=== PATIENT | female | born 1985 | race Caucasian/White ===

== ENCOUNTER 2017-04-23 15:16 | Emergency (ER) | payer OTHER ==
--- NOTE | 2017-04-23 15:38 | CPEKG ---
Heart Rate: 77 RR Interval: 779 P-R Interval: 180 QRSD Interval: 104 QT Interval: 400 QTC Interval: 453 P [place]: 71 QRS [place]: 69 T Wave [place]: 54 EKG Severity - NORMAL ECG - EKG Impression: SINUS RHYTHM Electronically Signed By: Jakub Stevens 23-Apr-2017 18:49:14
[2017-04-23] MEDS ORDERED: ASPIRIN 81 MG CHEWABLE TAB PO ONE (15:45)
[2017-04-23 15:51] VITALS: TEMP 97.9
[2017-04-23 15:52] LABS: % IMMATURE GRANULYOCYTES 0.2 % (0.0-1.1); ABSOLUTE IMMATURE GRANULOCYTES 0.02 10^3/uL (0.00-0.10); ADD DIFF? NO; ADD MORPH? NO; ADD SCAN? NO; ATYPICAL LYMPHOCYTE FLAG 50 (0-99); FRAGMENT RBC FLAG 0 (0-99); HEMATOCRIT 40.5 % (38.0-47.0); HEMOGLOBIN 14.4 g/dL (12.6-16.3); LEFT SHIFT FLG 0 (0-99); LIPEMIA HEMOLYSIS FLAG 90 (0-99); MEAN CELL HEMOGLOBIN 31.4 pg (27.9-34.1); MEAN CELL HEMOGLOBIN CONCENTR. 35.6 g/dL (32.4-36.7); MEAN CELL VOLUME 88.2 fL (81.5-99.8); PLATELET CLUMPS FLAG 20 (0-99); PLATELET COUNT 138 10^3/uL (150-400); RED BLOOD CELL COUNT 4.59 10^6/uL (4.18-5.33); RED CELL DISTRIBUTION WIDTH 12.3 % (11.5-15.2)
[2017-04-23] MEDS ORDERED: KETOROLAC 15 MG/1 ML SDV IVP ONE (15:59)
[2017-04-23] MEDS ORDERED: KETOROLAC 15 MG/1 ML SDV ONE (15:59)
[2017-04-23] MEDS ORDERED: NS 1,000 ML IV ONE (16:00)
[2017-04-23 16:02] LABS: APTT 28.8 SEC (23.0-38.0); INR 1.06 (0.83-1.16); PROTIME(PATIENT) 13.5 SEC (12.0-15.0)
[2017-04-23 16:12] LABS: ALANINE AMINOTRANSFERASE 43 IU/L (9-52); ALBUMIN 4.3 g/dL (3.5-5.0); ALKALINE PHOSPHATASE 65 IU/L (38-126); ANION GAP 13 mEq/L (8-16); ASPARTATE AMINOTRANSFERASE 29 IU/L (14-46); BILIRUBIN,TOTAL 1.3 mg/dL (0.1-1.4); BILIRUBIN-CONJUGATED 0.3 mg/dL (0.0-0.5); CARBON DIOXIDE 20 mEq/l (22-31); CHLORIDE 106 mEq/L (97-110); CREATININE 0.9 mg/dL (0.6-1.0); GLOMERULAR FILTRATION RATE > 60; GLUCOSE 99 mg/dL (70-100); POTASSIUM 3.7 mEq/L (3.5-5.2); SODIUM 139 mEq/L (134-144); TOTAL PROTEIN 7.3 g/dL (6.3-8.2)
[2017-04-23 16:15] LABS: TROPONIN I < 0.012 ng/mL (0.000-0.034)
[2017-04-23] MEDS ORDERED: IOPAMIDOL (ISOVUE 370) 100 ML BTL IV ONE (16:31)
[2017-04-23] MEDS ORDERED: HYOSCYAMINE SULFATE 0.125 MG TAB PO ONE (16:58)
--- NOTE | 2017-04-23 17:09 | EDPHY ---
H & P Stated Complaint: R SIDED CP Time Seen by Provider: 04/23/17 15:45 HPI/ROS: This patient complains of chest pain and right lower or chest that feels like pressure to her onset at noon approximately 90 minutes after eating bolognaise at home. She reports that the intensity quickly increased from mild pain to 6/ 10 at baseline up to 8/10 with deep breaths. She notes no change with movement and no other exacerbating factors. She has occasionally had issues with GERD but has had no significant GERD symptoms today. She did try Tums-4 prior to arrival and Zantac without improvement. She has driven here by her by private vehicle for further evaluation of her symptoms. ROS: No fevers or chills. No other constitutional symptoms. HEENT: No recent URI symptoms or other complaints. Neuro: No complaints Pulmonary: No shortness of breath. No cough. Cardiovascular: No heart palpitations. No lightheadedness. No leg swelling or calf pain. GI: No belching. No nausea. She reports that the pain feels like it may also be in her right upper belly but feels more prominent in her right lower chest. Musculoskeletal: No back pain or flank pain. Integumentary: No rash or other skin complaints : She reports spotting over the past 2 days and has an IUD. No urinary symptoms. Psychiatric: No complaints Complete review of symptoms is otherwise negative Source: Patient Exam Limitations: No limitations - Personal History LMP (Females 10-55): 1-7 Days Ago Current Tetanus Diphtheria and Acellular Pertussis (TDAP): Yes Tetanus Vaccine Date: LESS THAN 10 YEARS - Medical/Surgical History PMH: Occasional GERD. Otherwise healthy with a 3-1/2-year-old boy Hx Asthma: No Hx Chronic Respiratory Disease: No Hx Diabetes: No Hx Cardiac Disease: No Hx Renal Disease: No Hx Cirrhosis: No Hx Alcoholism: No Hx HIV/AIDS: No Hx Splenectomy or Spleen Trauma: No Other PMH: NONE - Family History Significant Family History: No pertinent family hx - Social History Smoking Status: Never smoked Alcohol Use: Occasionally Drug Use: None Additional Social History: No recent prolonged immobilization or travel. - Physical Exam Exam: Vital signs are normal General Appearance: Patient is initially tearful due to pain. Alert, no distress. Eyes: Pupils equal and round no pallor or injection. ENT, Mouth: Mucous membranes moist. Respiratory: There are no retractions, lungs are clear to auscultation. She does have mild right lower chest wall tenderness but feels like most of the pain is Cardiovascular: Regular rate and rhythm. No murmur gallop rub. No lower extremity edema no calf tenderness Gastrointestinal: Hyperactive bowel sounds with mild right upper quadrant tenderness. No guarding or rebound. No organomegaly. Neurological: GCS 15. Skin: Warm and dry, no rashes. Musculoskeletal: Neck is supple nontender. Extremities are symmetrical, full range of motion. Psychiatric: Mildly anxious. Otherwise normal mood and affect. DIFFERENTIAL DIAGNOSIS: After history and physical exam differential diagnosis was considered for PE, pleurisy, pneumonia, pericarditis, biliary disease, musculoskeletal pain, severe gas cramps Constitutional: Initial Vital Signs Temperature (C) 36.6 C 04/23/17 15:48 Heart Rate 76 04/23/17 15:48 Respiratory Rate 17 04/23/17 15:48 Blood Pressure 146/93 H 04/23/17 15:48 O2 Sat (%) 97 04/23/17 15:48 O2 Delivery Mode Room Air Allergies/Adverse Reactions: No Known Allergies Allergy (Verified 05/07/13 12:11) Home Medications: Medication Instructions Recorded 1 tab PO DAILY 05/07/13 Tums 2 tab PO DAILY 05/07/13 HYOSCYAMINE SULFATE [LEVSIN-SL] 0.125 - 0.25 mg SL Q6 PRN #20 04/23/17 tab.subl Pantoprazole Sodium [Protonix 40mg 40 mg PO DAILY #30 tab 04/23/17 (RX)] Medical Decision Making - Diagnostics EKG Interpretation: 12 lead EKG performed shortly after arrival at 3:37 p.m. indication chest pain rule out right heart strain or other Sinus rhythm on this EKG rate of 77 Intervals: Normal throughout [place]: Normal throughout ST segments: Normal throughout Overall assessment: Normal EKG. For complete read please refer to trace master. Imaging Results: Imaging Impressions Chest/Thorax CTA 04/23/17 16:19 Impression: 1. No pulmonary embolism. 2. Clear lungs. Findings and recommendations discussed with ANJMA MA at 1658 hour, . Final report concurs with initial preliminary interpretation. Imaging: Discussed imaging studies w/ magician/illusionist Radiologist ED Course/Re-evaluation: Aspirin, IV, monitor Patient remained stable on the monitor. IV Toradol and normal saline bolus with relief of pain down to mild intensity. Patient sent for CT angio chest given elevated D-dimer. This is read as normal by radiologist Nnamdi Espinoza with whom I discussed the study. Patient has minimal discomfort on repeat exam more prominent hyperactive bowel sounds. She is then treated with Levsin 0.125 sublingual with further reduction in her symptoms to near complete resolution. Discussion: Review of labs reveals mild elevation of her D-dimer. Patient's other labs including CBC, metabolic panel and, troponin, test (neg) and LFTs are normal. Given these findings, doubt biliary disease. We ruled out hepatitis. Given apparent pleuritic nature of the pain along with elevated D-dimer will proceed with CT angio to evaluate for potential PE. I counseled patient regarding her CT angio chest which is normal without evidence of PE. We have ruled out pulmonic process is of any significance with workup today. Similarly, no evidence of primary cardiac problem. Given patient's marked improvement with treatment hyperactive bowel sounds she may have had cramping primarily at the hepatic flexure this causing some discomfort in the right low chest in addition. No evidence after workup of significant acute pulmonary or cardiac pathology. The time of discharge the patient is comfortable with normal vital signs ambulating without difficulty. Plan on treating her with Levsin for any recurrent symptoms, bland diet. Patient also requested an antacid. Prescribed Protonix encouraged her to use Maalox in addition should she develop any significant GERD symptoms. She will follow up with primary care physician for any ongoing symptoms understands the need to return emergency department for any significant recurrence of symptoms despite the plan - Data Points Laboratory Results: Laboratory Results 04/23/17 15:45 04/23/17 15:45 04/23/17 04/23/17 04/23/17 15:45 15:45 15:45 WBC RBC Hgb Hct MCV MCH MCHC RDW Plt Count MPV Neut % (Auto) Lymph % (Auto) [place] % (Auto) Eos % (Auto) Baso % (Auto) Nucleat RBC Rel Count Absolute Neuts (auto) Absolute Lymphs (auto) Absolute Monos (auto) Absolute Eos (auto) Absolute Basos (auto) Absolute Nucleated RBC Immature Gran % Immature Gran # PT 13.5 SEC SEC (12.0-15.0) INR 1.06 (0.83-1.16) APTT 28.8 SEC SEC (23.0-38.0) D-Dimer 0.69 ug/mLFEU H ug/mLFEU (0.00-0.50) Sodium 139 mEq/L mEq/L (134-144) Potassium 3.7 mEq/L mEq/L (3.5-5.2) Chloride 106 mEq/L mEq/L (97-110) Carbon Dioxide 20 mEq/l L mEq/l (22-31) Anion Gap 13 mEq/L mEq/L (8-16) BUN 20 mg/dL mg/dL (7-23) Creatinine 0.9 mg/dL mg/dL (0.6-1.0) Estimated GFR > 60 Glucose 99 mg/dL mg/dL (70-100) Calcium 10.0 mg/dL mg/dL (8.5-10.4) Total Bilirubin 1.3 mg/dL mg/dL (0.1-1.4) Conjugated Bilirubin 0.3 mg/dL mg/dL (0.0-0.5) Unconjugated Bilirubin 1.0 mg/dL mg/dL (0.0-1.1) AST 29 IU/L IU/L (14-46) ALT 43 IU/L IU/L (9-52) Alkaline Phosphatase 65 IU/L IU/L (38-126) Troponin I < 0.012 ng/mL ng/mL (0.000-0.034) Total Protein 7.3 g/dL g/dL (6.3-8.2) Albumin 4.3 g/dL g/dL (3.5-5.0) Lipase 94 IU/L IU/L (23-300) Beta HCG, Qual NEGATIVE 04/23/17 15:45 WBC 9.09 10^3/uL 10^3/uL (3.80-9.50) RBC 4.59 10^6/uL 10^6/uL (4.18-5.33) Hgb 14.4 g/dL g/dL (12.6-16.3) Hct 40.5 % % (38.0-47.0) MCV 88.2 fL fL (81.5-99.8) MCH 31.4 pg pg (27.9-34.1) MCHC 35.6 g/dL g/dL (32.4-36.7) RDW 12.3 % % (11.5-15.2) Plt Count 138 10^3/uL L 10^3/uL (150-400) MPV 12.0 fL H fL (8.7-11.7) Neut % (Auto) 63.7 % % (39.3-74.2) Lymph % (Auto) 27.4 % % (15.0-45.0) [place] % (Auto) 7.4 % % (4.5-13.0) Eos % (Auto) 0.7 % % (0.6-7.6) Baso % (Auto) 0.6 % % (0.3-1.7) Nucleat RBC Rel Count 0.0 % % (0.0-0.2) Absolute Neuts (auto) 5.80 10^3/uL 10^3/uL (1.70-6.50) Absolute Lymphs (auto) 2.49 10^3/uL 10^3/uL (1.00-3.00) Absolute Monos (auto) 0.67 10^3/uL 10^3/uL (0.30-0.80) Absolute Eos (auto) 0.06 10^3/uL 10^3/uL (0.03-0.40) Absolute Basos (auto) 0.05 10^3/uL 10^3/uL (0.02-0.10) Absolute Nucleated RBC 0.00 10^3/uL 10^3/uL (0-0.01) Immature Gran % 0.2 % % (0.0-1.1) Immature Gran # 0.02 10^3/uL 10^3/uL (0.00-0.10) PT INR APTT D-Dimer Sodium Potassium Chloride Carbon Dioxide Anion Gap BUN Creatinine Estimated GFR Glucose Calcium Total Bilirubin Conjugated Bilirubin Unconjugated Bilirubin AST ALT Alkaline Phosphatase Troponin I Total Protein Albumin Lipase Beta HCG, Qual Medications Given: Discontinued Medications Aspirin (Aspirin) 324 mg PO EDNOW ONE Stop: 04/23/17 15:46 Last Admin: 04/23/17 15:53 Dose: 324 mg Hyoscyamine Sulfate (Levsin, Hyomax-Sl) 0.125 mg PO EDNOW ONE Stop: 04/23/17 16:59 Last Admin: 04/23/17 17:03 Dose: 0.125 mg Sodium Chloride (Ns) 1,000 mls @ 0 mls/hr IV EDNOW ONE; Wide Open PRN Reason: Protocol Stop: 04/23/17 16:01 Last Admin: 04/23/17 16:07 Dose: 1,000 mls Ketorolac Tromethamine (Toradol) 15 mg IVP EDNOW ONE Stop: 04/23/17 16:00 Last Admin: 04/23/17 16:07 Dose: 15 mg Departure - Departure Disposition: Home, Routine, Self-Care Clinical Impression: Chest pain in adult, RUQ abdominal pain Condition: Fair Instructions: Pantoprazole (By mouth), Chest Pain (ED), Acute Abdominal Pain ( ED) Additional Instructions: Diagnoses: 1. Right upper quadrant abdominal pain 2. Chest pain Plan: [place] diet to feel improved Consider a probiotic or yogurt Levsin if needed for acute cramping Maalox for acid reflux symptoms and Protonix. Follow up primary care physician for any ongoing symptoms. Return for any significant worsening despite the treatment plan Referrals: NONE *PRIMARY CARE P,. [Primary Care Provider] - As per Instructions Prescriptions: HYOSCYAMINE SULFATE [LEVSIN-SL] 0.125 - 0.25 mg SL Q6 PRN #20 tab.subl PRN Reason: abdominal cramping Pantoprazole Sodium [Protonix 40mg (RX)] 40 mg PO DAILY #30 tab
[2017-04-23 17:10] VITALS: BP 131/83; PULSE 80; RESP 20; O2SAT 99
== END 2017-04-23 17:17 | disposition home or self-care (01) ==
LOC: CED 15:16
DX: R07.89 Other chest pain (principal); R10.11 Right upper quadrant pain; E86.9 Volume depletion, unspecified
CPT/HCPCS: 71275-PO; 80048-PO; 80076-PO; 83690-PO; 84484-PO; 84703-PO; 85025-PO; 85378-PO; 85610-PO; 85730-PO; 96374; J1885; Q9967

== ENCOUNTER 2017-04-23 22:12 | Observation (INO) | payer OTHER ==
[2017-04-23] MEDS ORDERED: KETOROLAC 30 MG/1 ML SDV IVP ONE (22:22)
[2017-04-23] MEDS ORDERED: METOCLOPRAMIDE 10 MG/2 ML VIAL IVP ONE (22:22)
[2017-04-23] MEDS ORDERED: NS 1,000 ML IV ONE (22:22)
--- NOTE | 2017-04-23 22:34 | EDPHY ---
H & P Stated Complaint: RUQ pain 8/10 radiating to back with vomiting x 10 since d/c' ed at 1709. Source: Patient Exam Limitations: No limitations - Personal History LMP (Females 10-55): IUD In Place Current Tetanus Diphtheria and Acellular Pertussis (TDAP): Yes Tetanus Vaccine Date: LESS THAN 10 YEARS - Medical/Surgical History Hx Asthma: No Hx Chronic Respiratory Disease: No Hx Diabetes: No Hx Cardiac Disease: No Hx Renal Disease: No Hx Cirrhosis: No Hx Alcoholism: No Hx HIV/AIDS: No Hx Splenectomy or Spleen Trauma: No Other PMH: NONE - Family History Significant Family History: No pertinent family hx - Social History Smoking Status: Never smoked Alcohol Use: Occasionally Drug Use: None Time Seen by Provider: 04/23/17 22:16 HPI/ROS: This patient was here earlier in the shift in discharged at around 5:00 p.m. with resolution of right upper quadrant and right low chest pain. She had normal labs (CBC, comp metabolic panel, lipase, serum test negative) with the exception of a slightly elevated D-dimer and CT angio chest rule out PE. She received 15 mg dose of Toradol and 0.125 mg dose of Levsin with relief of her symptoms. Her initial symptoms did come on 90 minutes after eating food. She went home and felt well and did not heed instructions for a bland diet, having a burrito since she felt well, and 30 minutes later had development of severe right upper quadrant pain described as pressure and colicky in nature 8/10 intensity-worse than her initial pain earlier in the day. This time the pain radiates to her back. Patient also reports multiple episodes of vomiting and ongoing nausea currently The patient is brought in by her mother by private vehicle for further evaluation of her symptoms. ROS: No fevers or chills. No other constitutional symptoms HEENT: No URI complaints Pulmonary: No complaints Cardiovascular: No lightheadedness or heart palpitations. Currently no chest pain. GI: As per HPI. She did notice any hematemesis and actually did notice the color of her emesis because she has the lights off in the bathroom. : Spotting for 3 days with history of IUD Endocrine: No complaints Integumentary: No complaints 10 point ROS is otherwise negative. (Jakub Stevens) - Medical/Surgical History PMH: with 3-1/2-year-old boy Otherwise healthy No abdominal surgeries (Jakub Stevens) - Social History Additional Social History: Patient's mother is an RN who works at [employer] (Jakub Stevens) - Physical Exam Exam: General Appearance: Patient has some distress due to pain crying on arrival and class being her right upper quadrant Eyes: Pupils equal and round no pallor or injection. ENT, Mouth: Mucous membranes moist. Respiratory: There are no retractions, lungs are clear to auscultation. Cardiovascular: Regular rate and rhythm. No murmur gallop or rub Gastrointestinal: Normoactive to slightly hypoactive bowel sounds with exquisite right upper quadrant tenderness. No guarding or rebound Neurological: GCS 15 Skin: Warm and dry, no rashes. Musculoskeletal: Neck is supple nontender. Extremities are symmetrical, full range of motion. Psychiatric: Patient is anxious due to pain. A otherwise normal mood and affect DIFFERENTIAL DIAGNOSIS: After history and physical exam differential diagnosis was considered for biliary colic, early gallstone pancreatitis, GERD with esophageal spasm, (Jakub Stevens) Constitutional: Initial Vital Signs Temperature (C) 36.3 C 04/23/17 22:24 Heart Rate 58 L 04/23/17 22:24 Respiratory Rate 14 04/23/17 22:24 Blood Pressure 127/93 H 04/23/17 22:24 O2 Sat (%) 100 04/23/17 22:24 O2 Delivery Mode Room Air Allergies/Adverse Reactions: No Known Allergies Allergy (Verified 04/23/17 22:22) Home Medications: Medication Instructions Recorded Tums 2 tab PO DAILY 05/07/13 HYOSCYAMINE SULFATE [LEVSIN-SL] 0.125 - 0.25 mg SL Q6 PRN #20 04/23/17 tab.subl Pantoprazole Sodium [Protonix 40mg 40 mg PO DAILY #30 tab 04/23/17 (RX)] Medical Decision Making ED Course/Re-evaluation: IV normal saline bolus Toradol 15 mg IV Reglan 10 mg, Benadryl 25 mg IV Patient fell dysphoric in the bed hyperkinetic after the Reglan treated with Ativan 1 mg IV with relief. Discussion: Given onset of recurrence shortly after eating a burrito with significant increase in severity of symptoms and new onset of vomiting as well, symptomatic gallstone is high the differential diagnosis. For this reason, called in the technical marketing engineer for gallbladder ultrasound. Earlier labs ruled out hepatitis. Will repeat her LFTs and lipase as well as CBC to look for any interval change. at 11:[address] Blackwood, [facility] emergency physician is here and I signed the patient out to him for any further treatment, with gallbladder ultrasound pending. We did a bedside sign out. He will finalize treatment and disposition. (Jakub Stevens) 2300: Patient signed over to me at 11:00 p.m. shift change. Plan is for gallbladder ultrasound as it may be possible that she has biliary colic versus contacted stone versus cholecystitis. I did go and evaluate the patient. Her pain is located in the right upper quadrant. It is reproducible on exam. At this time she is comfortable after Toradol, Reglan, Benadryl, IV fluids, 1 of Ativan. I did review her previous ER charts as well as this chart. Additionally reviewed her labs from earlier and labs from current ER visit. Plan will be to follow-up ultrasound that appropriate disposition. 1250am: Patient is back from ultrasound she is resting comfortably. No vomiting. She has been sleeping at times. I did reexamine her abdomen is soft nontender. She has not feeling any pain at this time. She states that she is comfortable. I have updated her on her blood work. Her ultrasound results are pending at this time. 1255AM: Patient's ultrasound called to me by Dr. Espinoza. This is a gallbladder stone stuck in the gallbladder neck. There is pericholecystic fluid. There is hyperemia of the gallbladder wall this consistent with acute cholecystitis with an obstructing gallbladder stone. Additionally she has a nodule in her liver. It is in the left lobe of her liver measures 4 x 2.5 x 1.5. This will need further characterization with most likely an MRI. I will update her and her mom at bedside. 1256: Additionally I will consult general surgery. Last meal 6:00 p.m. katerin chen. 0109AM: This patient has decided to go to [facility] emergency room. She will go by private vehicle at her own request. Her mom is a nurse. We will leave her IV in. She is current receiving Invanz. I did speak with Dr. Pham he would like to evaluate the patient in the emergency room at [facility]. He specifically requested 20 mg of Bentyl. Have the patient lying on her right side. (Swapnil Blackwood) - Data Points Laboratory Results: Laboratory Results 04/23/17 22:30 04/23/17 22:30 04/24/17 04/23/17 04/23/17 00:33 22:30 22:30 WBC 12.06 10^3/uL H 10^3/uL (3.80-9.50) RBC 4.57 10^6/uL 10^6/uL (4.18-5.33) Hgb 14.5 g/dL g/dL (12.6-16.3) Hct 40.3 % % (38.0-47.0) MCV 88.2 fL fL (81.5-99.8) MCH 31.7 pg pg (27.9-34.1) MCHC 36.0 g/dL g/dL (32.4-36.7) RDW 12.3 % % (11.5-15.2) Plt Count 142 10^3/uL L 10^3/uL (150-400) MPV 12.7 fL H fL (8.7-11.7) Neut % (Auto) 78.4 % H % (39.3-74.2) Lymph % (Auto) 14.8 % L % (15.0-45.0) [place] % (Auto) 6.2 % % (4.5-13.0) Eos % (Auto) 0.2 % L % (0.6-7.6) Baso % (Auto) 0.2 % L % (0.3-1.7) Nucleat RBC Rel Count 0.0 % % (0.0-0.2) Absolute Neuts (auto) 9.44 10^3/uL H 10^3/uL (1.70-6.50) Absolute Lymphs (auto) 1.79 10^3/uL 10^3/uL (1.00-3.00) Absolute Monos (auto) 0.75 10^3/uL 10^3/uL (0.30-0.80) Absolute Eos (auto) 0.03 10^3/uL 10^3/uL (0.03-0.40) Absolute Basos (auto) 0.02 10^3/uL 10^3/uL (0.02-0.10) Absolute Nucleated RBC 0.00 10^3/uL 10^3/uL (0-0.01) Immature Gran % 0.2 % % (0.0-1.1) Immature Gran # 0.03 10^3/uL 10^3/uL (0.00-0.10) Sodium 139 mEq/L mEq/L (134-144) Potassium 3.9 mEq/L mEq/L (3.5-5.2) Chloride 95 mEq/L L D mEq/L (97-110) Carbon Dioxide 19 mEq/l L mEq/l (22-31) Anion Gap 25 mEq/L H mEq/L (8-16) BUN 17 mg/dL mg/dL (7-23) Creatinine 0.8 mg/dL mg/dL (0.6-1.0) Estimated GFR > 60 Glucose 105 mg/dL H mg/dL (70-100) Calcium 9.6 mg/dL mg/dL (8.5-10.4) Total Bilirubin 1.5 mg/dL H mg/dL (0.1-1.4) AST 29 IU/L IU/L (14-46) ALT 45 IU/L IU/L (9-52) Alkaline Phosphatase 73 IU/L IU/L (38-126) Total Protein 7.0 g/dL g/dL (6.3-8.2) Albumin 4.2 g/dL g/dL (3.5-5.0) Lipase 92 IU/L IU/L (23-300) Urine Color YELLOW Urine Appearance CLEAR Urine pH 6.0 (5.0-7.5) Ur Specific [place] 1.015 (1.002-1.030) Urine Protein NEGATIVE (NEGATIVE) Urine Ketones 2+ H (NEGATIVE) Urine Blood 2+ H (NEGATIVE) Urine Nitrate NEGATIVE (NEGATIVE) Urine Bilirubin NEGATIVE (NEGATIVE) Urine Urobilinogen 0.2 EU EU (0.2-1.0) Ur Leukocyte Esterase NEGATIVE (NEGATIVE) Urine RBC 0-1 /hpf /hpf (0-3) Urine WBC NONE SEEN /hpf /hpf (0-3) Ur Epithelial Cells NONE SEEN /lpf /lpf (NONE-1+) Urine Mucus 2+ /lpf H /lpf (NONE-1+) Urine Glucose NEGATIVE (NEGATIVE) Medications Given: Discontinued Medications Diphenhydramine HCl (Benadryl Injection) 25 mg IVP EDNOW ONE Stop: 04/23/17 22:25 Last Admin: 04/23/17 22:42 Dose: 25 mg Hydromorphone HCl (Dilaudid) 0.5 mg IVP EDNOW ONE Stop: 04/23/17 22:40 Last Admin: 04/24/17 00:36 Dose: Not Given Sodium Chloride (Ns) 1,000 mls @ 0 mls/hr IV EDNOW ONE; Wide Open PRN Reason: Protocol Stop: 04/23/17 22:23 Last Admin: 04/23/17 22:35 Dose: 1,000 mls Sodium Chloride (Ns) 1,000 mls @ 0 mls/hr IV EDNOW ONE; Wide Open PRN Reason: Protocol Stop: 04/24/17 00:40 Last Admin: 04/24/17 00:42 Dose: 1,000 mls Ketorolac Tromethamine (Toradol) 15 mg IVP EDNOW ONE Stop: 04/23/17 22:23 Last Admin: 04/23/17 22:37 Dose: 15 mg Lorazepam (Ativan Injection) 1 mg IVP EDNOW ONE Stop: 04/23/17 22:49 Last Admin: 04/23/17 22:52 Dose: 1 mg Metoclopramide HCl (Reglan Injection) 10 mg IVP EDNOW ONE Stop: 04/23/17 22:23 Last Admin: 04/23/17 22:42 Dose: 10 mg Departure - Departure Disposition: [facility] ER Clinical Impression: Acute cholecystitis, Gallstones Condition: Fair Instructions: Cholecystitis (ED), Biliary Colic (ED), Gallstones (ED), Acute Nausea and Vomiting (ED) Additional Instructions: 1.Go directly to [facility] emergency room. 2. Do not eat or drink anything. 3. They will be expecting you. 4. Dr. Pham is been consult for your care in the emergency room. Referrals: Yasir Santiago MD [Primary Care Provider] - As per Instructions
[2017-04-23 22:37] LABS: % IMMATURE GRANULYOCYTES 0.2 % (0.0-1.1); ABSOLUTE IMMATURE GRANULOCYTES 0.03 10^3/uL (0.00-0.10); ADD DIFF? NO; ADD MORPH? NO; ADD SCAN? NO; ATYPICAL LYMPHOCYTE FLAG 40 (0-99); FRAGMENT RBC FLAG 0 (0-99); HEMATOCRIT 40.3 % (38.0-47.0); HEMOGLOBIN 14.5 g/dL (12.6-16.3); LEFT SHIFT FLG 0 (0-99); LIPEMIA HEMOLYSIS FLAG 90 (0-99); MEAN CELL HEMOGLOBIN 31.7 pg (27.9-34.1); MEAN CELL VOLUME 88.2 fL (81.5-99.8); MEAN PLATELET VOLUME 12.7 fL (8.7-11.7); PLATELET CLUMPS FLAG 0 (0-99); PLATELET COUNT 142 10^3/uL (150-400); RED BLOOD CELL COUNT 4.57 10^6/uL (4.18-5.33); RED CELL DISTRIBUTION WIDTH 12.3 % (11.5-15.2)
[2017-04-23] MEDS ORDERED: HYDROmorphONE/DILAUDID 1 MG/ML INJ IVP ONE (22:39)
[2017-04-23] MEDS ORDERED: LORazepam 2 MG/ML INJ IVP ONE (22:48)
[2017-04-23] MEDS ORDERED: LORazepam 2 MG/ML INJ ONE (22:49)
[2017-04-23 22:53] LABS: ALANINE AMINOTRANSFERASE 45 IU/L (9-52); ALBUMIN 4.2 g/dL (3.5-5.0); ALKALINE PHOSPHATASE 73 IU/L (38-126); ANION GAP 25 mEq/L (8-16); ASPARTATE AMINOTRANSFERASE 29 IU/L (14-46); BILIRUBIN,TOTAL 1.5 mg/dL (0.1-1.4); CALCIUM 9.6 mg/dL (8.5-10.4); CARBON DIOXIDE 19 mEq/l (22-31); CHLORIDE 95 mEq/L (97-110); CREATININE 0.8 mg/dL (0.6-1.0); GLOMERULAR FILTRATION RATE > 60; GLUCOSE 105 mg/dL (70-100); POTASSIUM 3.9 mEq/L (3.5-5.2); SODIUM 139 mEq/L (134-144)
[2017-04-24 00:39] LABS: COLOR YELLOW; LEUKOCYTE ESTERASE,URINE NEGATIVE (NEGATIVE); NITRITE,URINE NEGATIVE (NEGATIVE)
[2017-04-24] MEDS ORDERED: NS 1,000 ML IV ONE (00:39)
[2017-04-24] MEDS ORDERED: ERTAPENEM 1 GM in NS 100 ML IV ONE (00:55)
[2017-04-24 00:59] LABS: MUCUS 2+ /lpf (NONE-1+); RBC,URINE 0-1 /hpf (0-3); WBC,URINE NONE SEEN /hpf (0-3)
[2017-04-24] MEDS ORDERED: NS 100 ML BAG (MINI-BAG) IV ONE (00:59)
[2017-04-24] MEDS ORDERED: DICYCLOMINE 10 MG CAP PO ONE (01:11)
[2017-04-24] MEDS ORDERED: ONDANSETRON 4 MG/2 ML VIAL IVP PRN (04:06)
[2017-04-24] MEDS ORDERED: HYDROmorphone HCL/NS/PF 0.4 MG/2 ML SYR IVP PRN (04:06)
[2017-04-24] MEDS ORDERED: NS 1,000 ML IV SCH (04:15)
--- NOTE | 2017-04-24 04:59 | GHP ---
[f rep st] PREOP HISTORY AND PHYSICAL DATE OF ADMISSION: 04/24/2017 ADMITTING DIAGNOSIS: Acute/chronic cholecystitis with cholelithiasis. HISTORY: The patient is a 32-year-old female who has had a lifelong problem of intermittent abdominal pain occurring on approximately a monthly basis. Today, she had a complaint of pressure in her chest. Initially, right upper quadrant, then across the belly and right chest. She went to [facility]. Workup for a pulmonary embolism was negative. She was sent home with a prescription for Levsin SL 0.125-0.25 mg sublingual q.6, Protonix 40 mg daily and Tums. She has not filled those prescriptions. She did go home and had a burrito. One-half hour later she had a recrudescence of her pain. She went back to [facility]. At this point, acute cholecystitis was diagnosed. She had a positive Riley sign as well as a stone impacted in the neck of her gallbladder. She became more comfortable with pain medications, but still had a positive Riley sign and was transferred to [facility] for treatment. SOCIAL HISTORY: She does not smoke. She has 1-2 drinks a month. ALLERGIES: She has no known drug allergies. MEDICATIONS: She does not take any medications. PAST HISTORY: She has had vaginal x1 and wisdom tooth extraction. There is no history of rheumatic fever, tuberculosis, hepatitis, or transfusions. REVIEW OF SYSTEMS: She had high blood pressure with oral contraceptives. She currently has an IUD in. She denies the possibility of . A test is pending. She wears lenses for visual correction. During her last week of her , she was found to have intrahepatic cholestasis of . On today's examination, she was told she had a cyst in her liver. She does have stress incontinence. There are no limits on her activities. No history of steroid use. She works as a debt recovery officer. Her child weighs 33 pounds. PHYSICAL EXAMINATION: GENERAL: She is polite, awake and communicative. She is not in acute distress at this time. HEENT: Her skull is normocephalic and atraumatic. Cranial nerves appear to be intact. NECK: Unremarkable. There is no thyroid enlargement or carotid bruits. BACK: Unremarkable. LUNGS: Clear to auscultation. CARDIAC: Exam shows S1, S2 to be normal with normal split of S2 without murmurs, rubs, or gallops. ABDOMEN: Hypoactive but normal- sounding bowel sounds. She is nontender, except in the right upper quadrant where she has a positive Riley sign. There is no cervical, supraclavicular, axillary or inguinal lymphadenopathy. Her white count is 12.6, hematocrit 40, platelet count 142. Total bilirubin is 1.5. Her AST is 29, her ALT is 45, her alk phos is 73. Her lipase was 92. IMPRESSION: Patient with lifelong abdominal complaints consistent with a chronic cholecystitis with acute exacerbation and known cholelithiasis by ultrasound. She is more comfortable now. She will be placed on the urgent OR schedule for today. In the meantime, she has received Invanz 1 g. She has been treated with Bentyl. She will be given Tylenol, Toradol and Dilaudid for pain control in the interim. Hydration will be continued. /[id number]/MODL MTDD
[2017-04-24 05:01] LABS: BILIRUBIN,TOTAL 1.3 mg/dL (0.1-1.4); BILIRUBIN-CONJUGATED 0.4 mg/dL (0.0-0.5); BILIRUBIN-UNCONJUGATED 0.9 mg/dL (0.0-1.1)
[2017-04-24] MEDS: KETOROLAC 30 MG/1 ML SDV IVP SCH ×4 (05:06→23:13)
[2017-04-24] MEDS: ACETAMINOPHEN 500 MG TAB PO SCH ×3 (05:30→23:14)
[2017-04-24] MEDS ORDERED: IOPAMIDOL (ISOVUE-M 200) 20 ML VIAL ONE (07:23)
[2017-04-24] MEDS ORDERED: BUPIVACAINE 0.25% 30 ML SDV ONE (07:23)
[2017-04-24] MEDS ORDERED: MIDAZOLAM 2 MG/2 ML VIAL ONE ×2 (08:00→08:38)
[2017-04-24] MEDS ORDERED: SCOPOLAMINE HYDROBROMIDE 1 MG/3 DAYS PATCH TD ONE (08:00)
--- NOTE | 2017-04-24 08:05 | PDHPUP ---
History & Physical Update H&P update statement: This history and physical update is based on an assessment of the patient which was completed after admission or registration (within 24 hours), but prior to the surgery/procedure. H&P update: H&P reviewed & patient examined, no change in patient's condition since H&P completed
[2017-04-24] MEDS ORDERED: PROPOFOL/EMULSION 500 MG/50 ML BOTTLE IV ONE (08:12)
[2017-04-24] MEDS ORDERED: fentaNYL 100 MCG/2 ML INJ ONE (08:12)
[2017-04-24] MEDS ORDERED: SUGAMMADEX SODIUM 200 MG/2 ML VIAL IVP ONE (08:33)
[2017-04-24] MEDS ORDERED: LIDOCAINE 2% 5 ML SDV ONE (08:33)
[2017-04-24] MEDS ORDERED: ROCURONIUM 50 MG/5 ML VIAL ONE (08:33)
[2017-04-24] MEDS ORDERED: KETOROLAC 30 MG/1 ML SDV ONE (08:33)
[2017-04-24] MEDS ORDERED: METOCLOPRAMIDE 10 MG/2 ML VIAL ONE (08:33)
[2017-04-24] MEDS ORDERED: ONDANSETRON 4 MG/2 ML VIAL ONE (08:33)
[2017-04-24] MEDS ORDERED: DEXAMETHASONE 4 MG/ML VIAL ONE (08:33)
[2017-04-24] MEDS ORDERED: RANITIDINE 50 MG/2 ML VIAL ONE (08:33)
--- NOTE | 2017-04-24 08:48 | PDANEPAE ---
ANE Past Medical History - Pulmonary History Hx Oxygen in Use at Home: No Hx Sleep Apnea: No Sleep Apnea Screening Result - Last Documented: Negative - Endocrine History Hx Diabetes: No - Chronic Pain History Chronic Pain: No ANE Review of Systems Review of Systems: ANE Patient History - Allergies Allergies/Adverse Reactions: No Known Allergies Allergy (Verified 04/23/17 22:22) - Home Medications Home Medications: Herbals/Supplements -Info Only 1 ea PO DAILY 04/24/17 [Last Taken Unknown] - NPO status NPO Since - Liquids (Date): 04/23/17 NPO Since - Liquids (Time): 00:00 NPO Since - Solids (Date): 04/23/17 NPO Since - Solids (Time): 00:00 - Smoking Hx Smoking Status: Never smoked - Alcohol Use Alcohol Use: Occasionally ANE Labs/Vital Signs - Labs Result Diagrams: 04/23/17 22:30 04/23/17 22:30 - Vital Signs Blood Pressure: 117/59 Heart Rate: 93 Respiratory Rate: 16 O2 Sat (%): 99 Height: 172.72 cm Weight: 65.771 kg ANE Physical Exam - Airway Neck exam: FROM Mallampati Score: Class 1 Mouth exam: normal dental/mouth exam - Pulmonary Pulmonary: no respiratory distress - Cardiovascular Cardiovascular: regular rate and rhythym, no murmur, rub, or gallop - ASA Status ASA Status: I, E ANE Anesthesia Plan Anesthesia Plan: general endotracheal anesthesia
[2017-04-24] MEDS ORDERED: MEPERIDINE 25 MG/ML SYR IVP PRN (08:49)
[2017-04-24] MEDS ORDERED: PROMETHAZINE HCL 25 MG/ML INJ IVP PRN (08:49)
[2017-04-24] MEDS ORDERED: NALOXONE HCL 0.4 MG/ML INJ IVP PRN (08:49)
[2017-04-24] MEDS ORDERED: LR 500 ML IV PRN (08:49)
[2017-04-24] MEDS ORDERED: fentaNYL 100 MCG/2 ML INJ IVP PRN (08:49)
[2017-04-24] MEDS ORDERED: DEXAMETHASONE 4 MG/ML VIAL IVP PRN (08:49)
[2017-04-24] MEDS ORDERED: ALBUTEROL 3 ML DEYVIAL IH PRN (08:49)
[2017-04-24] MEDS ORDERED: METOCLOPRAMIDE 10 MG/2 ML VIAL IVP PRN (08:49)
[2017-04-24] MEDS ORDERED: MEPERIDINE 25 MG/ML SYR ONE (09:22)
--- NOTE | 2017-04-24 09:38 | POSTOPPROG ---
Post Op Note Date of Operation: 04/24/17 Surgeon: Jose Israel Anesthesiologist: Delmy Anesthesia: GET(General Endotracheal) Pre-op Diagnosis: Acute cholecystitis Post-op Diagnosis: acute on chronic cholecystitis Procedure: Lap jaz Findings: Edematous wall, critical view obtained Inf/Abcess present in the surg proc area at time of surgery?: No EBL: Minimal Specimen(s): Gallbladder
[2017-04-24] MEDS ORDERED: PANTOPRAZOLE SODIUM 40 MG TAB PO SCH (10:15)
--- NOTE | 2017-04-24 10:18 | POSTANESTH ---
Post Anesthetic Evaluation Cardiovascular Status: Normal, Stable Respiratory Status: Normal, Stable Level of Consciousness/Mental Status: Mildly Sleepy, Arousable Pain Control: Adequate, Prn Tx Ordered Nausea/Vomiting Control: Adequate, Prn Tx Ordered
[2017-04-24] MEDS: oxyCODONE IR 5 MG TAB PO PRN ×2 (15:45→23:14)
--- NOTE | 2017-04-24 17:48 | ASMTCMCOM ---
CM Note CM Note Notes: Patient to surgery today for Geovanna. Patient will go home Independent . Date Signed: 04/24/2017 05:47 PM Electronically Signed By:MARY Person
--- NOTE | 2017-04-24 19:38 | GOP ---
[f rep st] OPERATIVE REPORT DATE OF OPERATION: 04/24/2017 SURGEON: Jose Israel MD WHITEPRINTING MACHINE OPERATOR: None. ANESTHESIA: General endotracheal. ANESTHESIOLOGIST: Provided by Dr. Maricel Brock. PREOPERATIVE DIAGNOSIS: Acute cholecystitis. POSTOPERATIVE DIAGNOSIS: Acute on chronic cholecystitis. PROCEDURE PERFORMED: Laparoscopic cholecystectomy. FINDINGS: Edematous gallbladder wall. Critical view was obtained. Duct appeared normal. SPECIMENS: Gallbladder. ESTIMATED BLOOD LOSS: 5 cc. DESCRIPTION OF PROCEDURE: The patient was greeted in the preoperative suite. Once again, risks, vivek efits, and alternatives were discussed. Consent was signed. She was then brought back to the operat paulo suite, placed on the OR table in the supine position. After all anesthesia machines, including S CDs, were on and functioning, World Health Organization time-out was performed. After successful ind uction of general anesthesia, the patient's abdomen was prepped and draped in typical sterile fashion . I entered the abdomen via an infraumbilical cutdown through which the Veress needle was passed. I achieved pneumoperitoneum to 15 mmHg, which was well tolerated by the patient. Through this, I inse rted a 10 mm Visiport. Once successfully in the abdomen, I placed 3 additional 5 mm trocars, 1 in th e subxiphoid, 2 in the right upper quadrant. I identified the gallbladder and successfully retracted it over the edge of the liver. I turned my attention toward the infundibulum where, via a combinati on of blunt dissection and electrocautery, I identified 2 and only 2 structures leading towards the g allbladder. I doubly clipped the proximal side of both the artery and the duct and successfully divi ded them, noting good clip placement on both the duct and the artery. I then took the gallbladder of f the liver bed using electrocautery. It was then placed in an EndoCatch bag and removed. Hemostasi s was achieved in the liver bed with electrocautery. I then irrigated the right upper quadrant with 1 L normal saline, noting clear effluent in the suction canister. I infiltrated all port sites with local anesthesia and then removed them under direct visualization. After evacuation of pneumoperiton eum, I closed my infraumbilical site with an interrupted 0 Vicryl noting excellent fascial reapproxim ation. I closed the skin with Monocryl over which Dermabond was placed. The patient was then extuba john in the operative suite and taken to the PACU in satisfactory condition. DRAINS: None. COUNTS: All counts were reported as correct x2. /[id number]/MODL
[2017-04-25] MEDS: KETOROLAC 30 MG/1 ML SDV IVP SCH (05:47)
[2017-04-25] MEDS: ACETAMINOPHEN 500 MG TAB PO SCH (05:48)
--- NOTE | 2017-04-25 07:25 | PDDCSUM ---
Discharge Summary Discharge Summary: DISCHARGE SUMMARY Date of Admission April 24 Date of Discharge April 25 DISCHARGE DIAGNOSES -acute cholecystitis HOSPITAL COURSE The patient was admitted from the ED and taken to the operating room where they underwent an uneventful laparoscopic cholecystectomy. They were subsequently taken to the PACU and then the general medical floor. The hospital course was uneventful, their diet was advanced to a regular diet which was well tolerated and their pain was well controlled. They were discharged home in stable condition on morning of the DISCHARGE MEDICATIONS New medications include oxycodone as needed for pain and oral Zofran for nausea DISPOSITION Home FOLLOW UP Follow up with me in the office in 10-14 days for a general post-operative visit
[2017-04-25 07:51] VITALS: BP 107/73; PULSE 55; RESP 18; TEMP 97.7; O2SAT 100
--- NOTE | 2017-04-25 11:59 | ASDISCHSUM ---
Discharge Information Plan Status:Home with No Needs Medically Cleared to Leave: Discharge Date:04/25/2017 08:32 AM CM D/C Disposition:Home, Routine, Self-Care ADT D/C Disposition:Home, Routine, Self-Care Projected Discharge Date:04/25/2017 08:32 AM Transportation at D/C: Discharge Delay Reason: Follow-Up Date:04/25/2017 08:32 AM Discharge Slot: Final Diagnosis: Placement Information Patient Contact Information Contact Name:KEVINCHRIS Relationship: Address:[address] City:[place] Alternate Phone: [facility]Zip Code:[place] [address] Email: Financial Information Financial Class:HMO and PPO Plans Primary Plan Desc:[facility] Primary Plan Number:[id number] Secondary Plan Desc: Secondary Plan Number: Assessment Information [facility] CM Progress Note CM Note CM Note Notes: Patient to surgery today for Geovanna. Patient will go home Independent . Date Signed: 04/24/2017 05:47 PM Electronically Signed By:MARY Person Intervention Information
== END 2017-04-25 08:32 | disposition still patient (30) ==
LOC: CED 04-24 01:34 → F1N 04-24 04:39
PROVIDERS: ADMIT Surgery; ATTEND Surgery
PROC: 0FT44ZZ Resection of Gallbladder, Percutaneous Endoscopic Approach (ICD-10-PCS; principal; 2017-04-24 15:30)
DX: K81.2 Acute cholecystitis with chronic cholecystitis (principal)
CPT/HCPCS: 47562; 76705; 96361; 96365; 96374; 96375; 99285; G0378; 80053-PO; 81003-PO; 81015-PO; 83690-PO; 85025-PO; J1100; J1200; J1335; J1885; J2060; J2250; J2405; J2704; J2765; J2780; J3010; Q9966

== ENCOUNTER 2017-04-26 10:37 | Emergency (ER) | payer OTHER ==
--- NOTE | 2017-04-26 11:01 | CPEKG ---
Heart Rate: 76 RR Interval: 789 P-R Interval: 196 QRSD Interval: 90 QT Interval: 384 QTC Interval: 432 P Seminole: 49 QRS Seminole: 33 T Wave Seminole: 17 EKG Severity - NORMAL ECG - EKG Impression: SINUS RHYTHM Electronically Signed By: Omega Daniel 28-Apr-2017 15:28:14
[2017-04-26 11:22] LABS: % IMMATURE GRANULYOCYTES 0.4 % (0.0-1.1); ABSOLUTE IMMATURE GRANULOCYTES 0.03 10^3/uL (0.00-0.10); ADD DIFF? NO; ADD MORPH? NO; ADD SCAN? NO; ATYPICAL LYMPHOCYTE FLAG 40 (0-99); COLOR PALE YELLOW; FRAGMENT RBC FLAG 0 (0-99); HEMATOCRIT 38.1 % (38.0-47.0); HEMOGLOBIN 13.2 g/dL (12.6-16.3); LEFT SHIFT FLG 0 (0-99); LEUKOCYTE ESTERASE,URINE NEGATIVE (NEGATIVE); LIPEMIA HEMOLYSIS FLAG 90 (0-99); MEAN CELL HEMOGLOBIN 31.7 pg (27.9-34.1); MEAN CELL HEMOGLOBIN CONCENTR. 34.6 g/dL (32.4-36.7); MEAN CELL VOLUME 91.6 fL (81.5-99.8); MEAN PLATELET VOLUME 12.3 fL (8.7-11.7); NITRITE,URINE NEGATIVE (NEGATIVE); PLATELET CLUMPS FLAG 0 (0-99); PLATELET COUNT 108 10^3/uL (150-400); RED BLOOD CELL COUNT 4.16 10^6/uL (4.18-5.33); RED CELL DISTRIBUTION WIDTH 12.6 % (11.5-15.2)
[2017-04-26 11:31] LABS: MUCUS TRACE /lpf (NONE-1+)
[2017-04-26 11:34] LABS: ANION GAP 12 mEq/L (8-16); CALCIUM 8.6 mg/dL (8.5-10.4); CARBON DIOXIDE 25 mEq/l (22-31); CHLORIDE 102 mEq/L (97-110); CREATININE 0.7 mg/dL (0.6-1.0); GLOMERULAR FILTRATION RATE > 60; GLUCOSE 100 mg/dL (70-100); POTASSIUM 3.6 mEq/L (3.5-5.2); SODIUM 139 mEq/L (134-144)
[2017-04-26 12:01] VITALS: RESP 18
[2017-04-26] MEDS ORDERED: ONDANSETRON 4 MG/2 ML VIAL IVP ONE (12:03)
[2017-04-26] MEDS ORDERED: NS 1,000 ML IV ONE (12:03)
[2017-04-26] MEDS ORDERED: IOPAMIDOL (ISOVUE 370) 100 ML BTL IV ONE (12:23)
--- NOTE | 2017-04-26 12:28 | EDPHY ---
General Narrative: CHIEF COMPLAINT: Chest pain, abdominal pain HISTORY OF PRESENT ILLNESS: Patient complains of abdominal and chest pain postop day 2 from laparoscopic cholecystectomy. The pain started early this morning. It is severe and in the right upper quadrant. Worse with palpation and movement. There is also chest pain that is generalized. It is worse with inspiration. Associated with shortness of breath. No cough. No fever. No redness of the abdomen or surgical incisions. No urinary complaints. She does have some diarrhea. She has no other associated complaints or modifying factors. REVIEW OF SYSTEMS: Ten systems reviewed and are negative unless otherwise noted in the HPI PCP: Dr. Yasir Santiago SPECIALISTS: Dr. Jose Israel PAST MEDICAL HISTORY: Chronic cholecystitis PAST SURGICAL HISTORY: Laparoscopic cholecystectomy 2 days ago SOCIAL HISTORY: Nonsmoker. Occasional alcohol. No drug use. 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 Airway patent Neck: Normal inspection, supple, non-tender Respiratory: Lungs are clear to auscultation painful inspiration. No wheezing , rhonchi or crackles Cardiovascular: Regular rate and rhythm. No murmur. Pulses intact distally Gastrointestinal: Abdomen is soft and nondistended. There are laparoscopic surgical incisions that are clean, dry and intact. Guarding in the right upper quadrant of the abdomen. No tympany rigidity. No CVA tenderness. Neurological: GCS 15. A&O, nonfocal, normal gait Skin: Warm and dry, no rash. Surgical incisions that are clean, dry and intact. No erythema. No drainage at surgical incisions. Extremities: Nontender, no pedal edema. Symmetric range of motion Psychiatric: Mood and affect normal DIFFERENTIAL DIAGNOSES: Including but not limited to postoperative seroma, postop infection, PE, pleurisy, atelectasis, pneumonia MDM: 12:17 p.m. Postoperative abdominal and chest pain. The patient is postop day 2 from laparoscopic cholecystectomy. She is also having pleuritic chest pain with shortness of breath and dyspnea. I have ordered CT angio of the chest rule out PE. I have ordered CT of the abdomen pelvis rule out postoperative complication. Vital signs are within normal limits. IV fluid and pain medication have been ordered. CBC unremarkable. Remainder of labs are pending. 1:[address] Israel has come to the emergency department to see the patient. This was without paging him to do so. Laboratory results were discussed with him, including a mildly elevated total bilirubin though to be acceptable given her recent surgery. 1:30 p.m. Case discussed with radiologist Dr. Espinoza. CT scan findings discussed. CT scan of the chest reveals no PE. I will discuss with surgeon 2:00 p.m. Case discussed with surgeon Dr. Israel. He informed me that he would be happy to admit the patient for symptomatic care should she desire to do so. He also feel she is stable for discharge home at this time. 2:20 p.m. Visit with the patient updated her regarding the CT findings and discussion with the surgeon. She is discussing with her mother whether she would like to send hospital or go home. 2:40 p.m. Patient would like to try and go home. She has pain medication. I will provide prescription for nausea medication. She and her mother requesting low dose of for this. I do feel this is reasonable. She will be instructed follow up with surgeon tomorrow Sunday. She is ED precautions for worsening pain, fever, constipation, difficulty urinating. She is comfortable with this plan. She is discharged home stable condition. - Diagnostics Imaging Results: Imaging Impressions Abdomen CT 04/26/17 12:11 Impression: 1. Small free fluid in the right upper quadrant, bilateral paracolic gutters and low pelvis. Postoperative free fluid may represent seroma, reactive inflammatory process or biliary leak. 2. No organized biloma or abscess. 3. Mild adynamic ileus. No obstruction. 4. Malpositioned intrauterine device in the endometrial cavity. Suspected lesion in the left lobe of the liver is not well characterized. Recommend follow -up MRI of the abdomen without and with IV contrast. Findings discussed with Emergency Department physician butcher's assistant, William Garrett PA-C on April 26, 2017 at 1345 hours. Chest/Thorax CTA 04/26/17 12:11 Impression: 1. No evidence of thrombopulmonary embolic disease. 2. New small right and trace left pleural effusions with associated bibasilar atelectasis. Findings discussed with Emergency Department physician butcher's assistant, William Garrett PA-C on April 26, 2017 at 1340 hours. - History Smoking Status: Never smoked - Objective Vital Signs: Initial Vital Signs Temperature (C) 98.8 F 04/26/17 10:44 Heart Rate 81 04/26/17 10:44 Respiratory Rate 18 04/26/17 10:44 Blood Pressure 137/82 H 04/26/17 10:44 O2 Sat (%) 98 04/26/17 10:44 O2 Delivery Mode Room Air Allergies/Adverse Reactions: No Known Allergies Allergy (Verified 04/23/17 22:22) Home Medications: Medication Instructions Recorded Herbals/Supplements -Info Only 1 ea PO DAILY 04/24/17 Ondansetron Odt [Zofran Odt 4 mg 4 mg PO Q4 PRN #30 tab 04/25/17 (*)] oxyCODONE IR [Oxycodone Ir (*)] 5 - 10 mg PO Q4HRS PRN #20 tab 04/25/17 LORazepam [Ativan] 0.5 mg PO Q8 PRN #9 tablet 04/26/17 Promethazine HCl [Phenergan 25mg 25 mg PO Q8 PRN #12 tab 04/26/17 (*)] Laboratory Results: Laboratory Results 04/26/17 11:10 04/26/17 11:10 04/26/17 04/26/17 04/26/17 11:10 11:10 11:10 WBC RBC Hgb Hct MCV MCH MCHC RDW Plt Count MPV Neut % (Auto) Lymph % (Auto) Burnett % (Auto) Eos % (Auto) Baso % (Auto) Nucleat RBC Rel Count Absolute Neuts (auto) Absolute Lymphs (auto) Absolute Monos (auto) Absolute Eos (auto) Absolute Basos (auto) Absolute Nucleated RBC Immature Gran % Immature Gran # Sodium 139 mEq/L mEq/L (134-144) Potassium 3.6 mEq/L mEq/L (3.5-5.2) Chloride 102 mEq/L mEq/L (97-110) Carbon Dioxide 25 mEq/l D mEq/l (22-31) Anion Gap 12 mEq/L mEq/L (8-16) BUN 9 mg/dL mg/dL (7-23) Creatinine 0.7 mg/dL mg/dL (0.6-1.0) Estimated GFR > 60 Glucose 100 mg/dL mg/dL (70-100) Calcium 8.6 mg/dL mg/dL (8.5-10.4) Total Bilirubin 1.6 mg/dL H mg/dL (0.1-1.4) Conjugated Bilirubin 0.2 mg/dL mg/dL (0.0-0.5) Unconjugated Bilirubin 1.4 mg/dL H mg/dL (0.0-1.1) AST 176 IU/L H IU/L (14-46) ALT 374 IU/L H IU/L (9-52) Alkaline Phosphatase 81 IU/L IU/L (38-126) Total Protein 6.5 g/dL g/dL (6.3-8.2) Albumin 3.8 g/dL g/dL (3.5-5.0) Lipase 54 IU/L IU/L (23-300) Urine Color PALE YELLOW Urine Appearance CLEAR Urine pH 7.0 (5.0-7.5) Ur Specific Gibson 1.010 (1.002-1.030) Urine Protein NEGATIVE (NEGATIVE) Urine Ketones 1+ H (NEGATIVE) Urine Blood 1+ H (NEGATIVE) Urine Nitrate NEGATIVE (NEGATIVE) Urine Bilirubin NEGATIVE (NEGATIVE) Urine Urobilinogen NEGATIVE EU EU (0.2-1.0) Ur Leukocyte Esterase NEGATIVE (NEGATIVE) Urine RBC 1-3 /hpf /hpf (0-3) Urine WBC 1-3 /hpf /hpf (0-3) Ur Epithelial Cells TRACE /lpf /lpf (NONE-1+) Urine Mucus TRACE /lpf /lpf (NONE-1+) Urine Glucose NEGATIVE (NEGATIVE) 04/26/17 11:10 WBC 8.49 10^3/uL 10^3/uL (3.80-9.50) RBC 4.16 10^6/uL L 10^6/uL (4.18-5.33) Hgb 13.2 g/dL g/dL (12.6-16.3) Hct 38.1 % % (38.0-47.0) MCV 91.6 fL fL (81.5-99.8) MCH 31.7 pg pg (27.9-34.1) MCHC 34.6 g/dL g/dL (32.4-36.7) RDW 12.6 % % (11.5-15.2) Plt Count 108 10^3/uL L 10^3/uL (150-400) MPV 12.3 fL H fL (8.7-11.7) Neut % (Auto) 79.0 % H % (39.3-74.2) Lymph % (Auto) 14.1 % L % (15.0-45.0) Burnett % (Auto) 5.9 % % (4.5-13.0) Eos % (Auto) 0.4 % L % (0.6-7.6) Baso % (Auto) 0.2 % L % (0.3-1.7) Nucleat RBC Rel Count 0.0 % % (0.0-0.2) Absolute Neuts (auto) 6.71 10^3/uL H 10^3/uL (1.70-6.50) Absolute Lymphs (auto) 1.20 10^3/uL 10^3/uL (1.00-3.00) Absolute Monos (auto) 0.50 10^3/uL 10^3/uL (0.30-0.80) Absolute Eos (auto) 0.03 10^3/uL 10^3/uL (0.03-0.40) Absolute Basos (auto) 0.02 10^3/uL 10^3/uL (0.02-0.10) Absolute Nucleated RBC 0.00 10^3/uL 10^3/uL (0-0.01) Immature Gran % 0.4 % % (0.0-1.1) Immature Gran # 0.03 10^3/uL 10^3/uL (0.00-0.10) Sodium Potassium Chloride Carbon Dioxide Anion Gap BUN Creatinine Estimated GFR Glucose Calcium Total Bilirubin Conjugated Bilirubin Unconjugated Bilirubin AST ALT Alkaline Phosphatase Total Protein Albumin Lipase Urine Color Urine Appearance Urine pH Ur Specific Gibson Urine Protein Urine Ketones Urine Blood Urine Nitrate Urine Bilirubin Urine Urobilinogen Ur Leukocyte Esterase Urine RBC Urine WBC Ur Epithelial Cells Urine Mucus Urine Glucose Medications Given: Discontinued Medications Sodium Chloride (Ns) 1,000 mls @ 0 mls/hr IV ONCE ONE PRN Reason: Wide Open Stop: 04/26/17 12:04 Last Admin: 04/26/17 12:08 Dose: 1,000 mls Ketorolac Tromethamine (Toradol) 15 mg IVP EDNOW ONE Stop: 04/26/17 12:38 Last Admin: 04/26/17 12:37 Dose: 15 mg Ondansetron HCl (Zofran) 4 mg IVP EDNOW ONE Stop: 04/26/17 12:04 Last Admin: 04/26/17 12:09 Dose: 4 mg Departure - Departure Disposition: Home, Routine, Self-Care Clinical Impression: Post-operative pain, Nausea Condition: Good Instructions: Abdominal Pain (ED) Additional Instructions: 1. Continue previously prescribed pain medication as needed 2. Promethazine as prescribed as needed 3. Ativan as prescribed as needed 4. Follow up with her surgeon for definitive care 5. Follow up in ED for worsening symptoms as discussed Referrals: Yasir Santiago MD [Primary Care Provider] - As per Instructions Prescriptions: LORazepam [Ativan] 0.5 mg PO Q8 PRN #9 tablet PRN Reason: Anxiety Promethazine HCl [Phenergan 25mg (*)] 25 mg PO Q8 PRN #12 tab PRN Reason: Nausea/Vomiting, Use 1st
[2017-04-26 12:33] LABS: ALBUMIN 3.8 g/dL (3.5-5.0); BILIRUBIN,TOTAL 1.6 mg/dL (0.1-1.4); BILIRUBIN-CONJUGATED 0.2 mg/dL (0.0-0.5); BILIRUBIN-UNCONJUGATED 1.4 mg/dL (0.0-1.1); TOTAL PROTEIN 6.5 g/dL (6.3-8.2)
[2017-04-26] MEDS ORDERED: KETOROLAC 15 MG/1 ML SDV ONE (12:34)
[2017-04-26] MEDS ORDERED: KETOROLAC 15 MG/1 ML SDV IVP ONE (12:37)
[2017-04-26 14:58] VITALS: O2SAT 98
[2017-04-26 15:00] VITALS: BP 125/75; PULSE 74; TEMP 98.1
== END 2017-04-26 14:59 | disposition home or self-care (01) ==
DX: G89.18 Other acute postprocedural pain (principal); R11.0 Nausea; Z90.49 Acquired absence of other specified parts of digestive tract
CPT/HCPCS: 96374; J1885; J2405; Q9967